=== PATIENT | female | born 1965 | race Hispanic/Latino ===

== ENCOUNTER 2025-03-27 12:06 | Emergency (ER) | payer BC ==
[~2025-03-27] VITALS: Ht 167.6 cm; Wt 65.8 kg
[~2025-03-27 12:06] MED LIST: ALBUHFA IH; ASPI-1005 PO; ATOR40TA69 PO; CHOL500050 PO; CLOP75TA32 PO; EMPA25TA PO; ENAL-89 PO; FENO134C21 PO; HYDR25TA PO; SEMA2PEN SQ
--- NOTE | 2025-03-27 12:13 | ERN ---
ED Note History of Present Illness Stated Complaint: NAUSEA AND VOMITING Chief Complaint: Nausea,Vomiting,Diarrhea Time Seen by MD: 12:07 Dictation: PATIENT IS A 59-YEAR-OLD FEMALE COMING IN WITH TODAY WITH COMPLAINTS OF EPIGASTRIC AND LEFT UPPER QUADRANT PAIN WITH NAUSEA VOMITING ONSET THREE DAYS PRIOR TO ARRIVAL. NO CHEST PAIN NO BACK PAIN NO SOB. NO ARM PAIN NO JAW PAIN. SEE YOUR PRIMARY CARE DOCTOR. Allergies: Coded Allergies: No Known Allergies (Unverified Allergy, Unknown, 04/24/24) Home Meds Active Scripts Atorvastatin Calcium (LIPITOR) 40 Mg Tablet, 80 MG PO HS, #30 TAB 0 Refills Prov:ASHLEY BLANDON MD 04/26/24 Aspirin (ASPIRIN 81MG CHEW TAB) 81 Mg Tab.chew, 81 MG PO DAILY, #30 TAB.CHEW 0 Refills Prov:ASHLEY BLANDON MD 04/26/24 Fenofibrate,Micronized (Fenofibrate) 134 Mg Capsule, 1 CAP PO DAILY, #30 CAP 0 Refills Prov:ASHLEY BLANDON MD 04/26/24 Clopidogrel Bisulfate (Clopidogrel) 75 Mg Tablet, 1 TAB PO DAILY, #30 TAB 0 Refills Prov:ASHLEY BLANDON MD 04/26/24 Reported Medications Semaglutide (Ozempic) 2 Mg/0.75 Ml (8 Mg/3 Ml) Pen.injctr, 2 MG SQ QWEEK Wednesdays04/25/24 Albuterol Sulfate (Ventolin Hfa/Proventil Hfa/Proair Hfa) 90 Mcg Puff, 2 PUFF IH Q6HPRN PRN for SHORTNESS OF BREATH/WHEEZING, INHALER 04/25/24 Empagliflozin (Jardiance) 25 Mg Tablet, 1 TAB PO DAILY 04/25/24 Enalapril Maleate (Enalapril Maleate) 10 Mg Tablet, 1 TAB PO DAILY 04/25/24 Cholecalciferol (Vitamin D3) (Vitamin D3) 1,250 Mcg (68777 Unit) Capsule, 1 CAP PO QWEEK Mondays04/25/24 Hydrochlorothiazide (Hydrochlorothiazide) 25 Mg Tablet, 1 TAB PO DAILY 04/25/24 Past Medical History Past Medical History: Diabetes-Type II, Hypertension Surgical History: None History: Not Applicable RN Note Reviewed/Agreed w/PFSH: Yes Review of System Dictation CONSTITUTIONAL: NEGATIVE EXCEPT FOR HPI HEAD/FACE: NEGATIVE EXCEPT FOR HPI EENT: NEGATIVE EXCEPT FOR HPI RESPIRATORY: NEGATIVE EXCEPT FOR HPI GASTROINTESTINAL/ABDOMINAL: NEGATIVE EXCEPT FOR HPI EPIGASTRIC AND LEFT UPPER QUADRANT PAIN WITH NAUSEA VOMITING GENITOURINARY: NEGATIVE EXCEPT FOR HPI MUSCULOSKELETAL: NEGATIVE EXCEPT FOR HPI INTEGUMENTARY: NEGATIVE EXCEPT FOR HPI NEUROLOGICAL/PSYCH: NEGATIVE EXCEPT FOR HPI HEMATOLOGIC/LYMPHATIC: NEGATIVE EXCEPT FOR HPI ALL SYSTEMS NEGATIVE, EXCEPT NOTED ABOVE. 13 POINT REVIEW OF SYSTEMS ASSESSED AND ALL NEGATIVE EXCEPT FOR ABOVE. Initial Vital Sign VS Vital Signs Date Time Temp Pulse Resp B/P (MAP) Pulse Ox O2 Delivery O2 Flow Rate FiO2 03/27/25 12:07 98.2 77 16 161/77 97 Room Air 03/27/25 12:26 0 21 Physical Exam Dictation VITAL SIGNS REVIEWED GENERAL APPEARANCE: ALERT, ORIENTED X 3, MODERATE ACUTE DISTRESS, WELL DEVELOPED, NOURISHED. HEAD AND FACE: NON-TRAUMATIC. EYES: PERRL, PINK CONJUNCTIVAS, EYELID NO TRAUMA, ANTERIOR CHAMBER WITH ARCUS SENILIS. EARS: PINNAS INTACT AND NO SIGNS OF TRAUMA OR ERYTHEMA EAR CANALS CLEAR AND NO DISCHARGE TM NO ERYTHEMA NOSE: NO DISCHARGE, NO BLEEDING. OROPHARYNX: MOUTH NORMAL, TONGUE PINK, PHARYNX CLEAR,NO ERYTHEMA, TONSILS NO EXUDATES, NO ABSCESSES NOTED, MUCOUS MEMBRANE MOIST NECK: SUPPLE, NON-TENDER, NO THYROMEGALY, NO MASSES, NO JVD, NO BRUITS BREAST:DEFERRED CHEST:NO TENDERNESS, NO CREPITUS, NO PARADOXICAL MOVEMENT, NO RETRACTIONS LUNGS:CLEAR, WELL-VENTILATED, SYMMETRIC, NO RALES, NO WHEEZING, NO RHONCHI, NO STRIDOR, GOOD BREATH SOUNDS BILATERALLY HEART: REGULAR RATE, REGULAR RHYTHM, NO MURMUR, NO GALLOPS VASCULAR: NO PERIPHERAL EDEMA, ABDOMEN: SOFT, POSITIVE BOWEL SOUNDS, NONDISTENDED, NO GUARDING, MODERATE EPIGASTRIC TENDERNESS WITH PALPATION NO REBOUND, NO MASSES NO HEPATOMEGALY, NO SPLENOMEGALY, NO HERNANDEZ'S SIGN, NO HERNIAS. RECTAL: DEFERRED GENITAL: DEFERRED NEUROLOGICAL: NORMAL SPEECH, MOTOR FUNCTION INTACT, SENSORY FUNCTION INTACT MUSCULOSKELETAL: NECK NONTENDER, FULL RANGE OF MOTION, BACK NONTENDER, FULL RANGE OF MOTION, EXTREMITIES: NONTENDER, FULL RANGE OF MOTION SKIN: COLOR PINK, DRY, NO TURGOR, NO RASH, NO LACERATIONS, NO ABRASIONS, NO CONTUSIONS. LYMPHATIC: DEFERRED Results (Laboratory/Radiology) Laboratory/Radiology Laboratory Tests Test 03/27/25 12:31 03/27/25 12:42 White Blood Count 7.9 K/uL (4.8-10.8) Red Blood Count 4.80 MIL/uL (4.00-5.50) Hemoglobin 15.3 g/dL (12.0-16.0) Hematocrit 44.0 % (36-48) Mean Corpuscular Volume 91.7 fL (79-99) Mean Corpuscular Hemoglobin 31.9 pg (27.0-33.0) Mean Corpuscular Hemoglobin Concent 34.8 g/dL (32.0-36.0) Red Cell Distribution Width 12.7 % (11.0-15.5) Platelet Count 242 K/uL (130-400) Mean Platelet Volume 10.9 fL (7.5-10.5) H Immature Granulocyte % (Auto) 0.6 % (0-1) Neutrophils (%) (Auto) 58.4 % (40.0-77.0) Lymphocytes (%) (Auto) 30.4 % (21.0-51.0) Monocytes (%) (Auto) 8.1 % (3.0-13.0) Eosinophils (%) (Auto) 2.0 % (0.0-8.0) Basophils (%) (Auto) 0.5 % (0.0-5.0) Neutrophils # (Auto) 4.6 K/uL (1.8-7.7) Lymphocytes # (Auto) 2.4 K/uL (1.0-4.8) Monocytes # (Auto) 0.6 K/uL (0.1-1.0) Eosinophils # (Auto) 0.16 K/uL (0.00-0.70) Basophils # (Auto) 0.04 K/uL (0.00-0.20) Absolute Immature Granulocyte (auto 0.05 K/uL (0-1) Nucleated Red Blood Cells 0.0 % (0.0-0.19) Sodium Level 140 mmol/L (136-145) Potassium Level 4.6 mmol/L (3.5-5.1) Chloride Level 102 mmol/L (101-111) Carbon Dioxide Level 28 mmol/L (21-32) Blood Urea Nitrogen 18 mg/dL (7-18) Creatinine 0.5 mg/dL (0.5-1.0) Glomerular Filtration Rate Calc 107 mL/min (>90) Random Glucose 96 mg/dL (70-105) Total Calcium 8.7 mg/dL (8.5-10.1) Troponin I High Sensitivity 5 ng/L (4-50) Lipase 79 U/L (16-77) H Urine Color YELLOW (YELLOW) Urine Appearance CLEAR (CLEAR) Urine pH 5.5 (5.0-8.0) Urine Specific [place] 1.048 (1.001-1.031) Urine Protein NEGATIVE mg/dL (NEGATIVE) Urine Glucose (UA) >=1000 mg/dL (NEGATIVE) H Urine Ketones 10 mg/dL (NEGATIVE) H Urine Occult Blood NEGATIVE (NEGATIVE) Urine Nitrate NEGATIVE (NEGATIVE) Urine Bilirubin NEGATIVE mg/dL (NEGATIVE) Urine Urobilinogen 0.2 mg/dL (0.2-1.0) Urine Leukocyte Esterase 25 Albert/uL (NEGATIVE) H Urine RBC 2-5 /HPF (0-1) H Urine WBC 6-10 /HPF (0-1) H Urine Squamous Epithelial Cells FEW /HPF (0-2) Urine Bacteria None /HPF (None Seen) Labs Reviewed?: Yes EKG Comment: 1217/EKG sinus rhythm/heart rate 69/axis normal/right bundle branch block ED Course ED Course Orders Procedure Category Date Status Time Cbc With Differential LAB 03/27/25 Complete 12:09 Troponin I High LAB 03/27/25 Complete Sensitivity 12:09 Urinalysis Profile LAB 03/27/25 Complete 12:09 0.9%Nacl 1000ml (Ns PHA 03/27/25 Complete 1000ml) 12:30 Morphine 2mg Syg PHA 03/27/25 Complete (Morphine 2mg Syg) 12:30 Ondansetron 4mg Inj PHA 03/27/25 Complete (Zofran 4mg Inj) 12:30 Famotidine 20mg Vial PHA 03/27/25 Complete (Pepcid 20mg Vial) 12:30 Lipase LAB 03/27/25 Complete 12:09 Basic Metabolic Panel LAB 03/27/25 Complete 12:09 12 Lead Ekg Tracing- EKG 03/27/25 Complete Technical 12:20 Lidocaine Hcl 2% PHA 03/27/25 Complete Viscous (Lidocaine Hcl 13:00 Mag/Alum/Simeth 30ml PHA 03/27/25 Complete (Maalox Plus 30ml) 13:00 Dicyclomine Hcl PHA 03/27/25 Complete (Bentyl 10mg/5ml 13:00 Culture Urine FRANCISCO 03/27/25 In Process 13:49 Current Medications Medications (Trade) Dose Ordered Sig/Caridad Route PRN Reason Start Time Stop Time Status Last Admin Dose Admin Al Hydroxide/Mg Hydroxide (MAALox PLUS 30ML) 30 ml ONCE ONCE PO 03/27/25 13:00 03/27/25 13:01 DC 03/27/25 13:33 Dicyclomine HCl (Bentyl 10mg/5ml Syrup) 10 mg ONCE ONCE PO 03/27/25 13:00 03/27/25 13:01 DC 03/27/25 13:33 Famotidine (Pepcid 20mg Vial) 20 mg ONCE ONCE IV 03/27/25 12:30 03/27/25 12:31 DC 03/27/25 12:33 Lidocaine HCl (Lidocaine HCl 2% Viscous) 10 ml ONCE ONCE PO 03/27/25 13:00 03/27/25 13:01 DC 03/27/25 13:33 Morphine Sulfate (morPHINE 2MG SYG) 2 mg ONCE ONCE IVP 03/27/25 12:30 03/27/25 12:31 DC 03/27/25 12:33 Ondansetron HCl (zoFRAN 4MG INJ) 4 mg ONCE ONCE IVP 03/27/25 12:30 03/27/25 12:31 DC 03/27/25 12:32 Sodium Chloride 1,000 ml @ 0 mls/hr ONCE ONCE IV 03/27/25 12:30 03/27/25 12:31 DC 03/27/25 12:33 Vital Signs Date Time Temp Pulse Resp B/P (MAP) Pulse Ox O2 Delivery O2 Flow Rate FiO2 03/27/25 14:02 98.2 70 16 152/74 95 Room Air* 0 21 03/27/25 12:26 98.2 73 16 148/75 95 Room Air* 0 21 03/27/25 12:07 98.2 77 16 161/77 97 Room Air 1455/PATIENT FEELS MARKEDLY IMPROVED AFTER GI COCKTAIL FLUIDS. SHE WILL BE DISCHARGED HOME WITH ACUTE URINARY TRACT INFECTION AND GASTRITIS. HEART Score Response (Comments) Value EKG: Repolarization changes 1 Age: 45-65yrs (+1) 1 Risk Factors: 1-2 risk factors (+1) 1 Initial Troponin: Normal limit (0) 0 Total 3 Medical Decision Making MDM MDM: DIFFERENTIAL DIAGNOSIS: ACUTE GASTRITIS/PANCREATITIS/ACS/AMI/ELECTROLYTE IMBALANCE/DEHYDRATION/UTI RATIONALE: TESTS CONSIDERED AND ORDERED SECONDARY TO SHARED DECISION MAKING INCLUDE: LABS/RADIOLOGY/EKG PREVIOUS OUTSIDE RECORDS REVIEWED: OLD ER VISITS. RISK OF COMPLICATION AND/OR MORBIDITY OR MORTALITY OF PATIENT MANAGEMENT: NONE MEDICATIONS-PER MEDICATION RECONCILIATION NEED FOR HOSPITALIZATION: PATIENT DOES NOT MEET CRITERIA FOR HOSPITALIZATION. NONE NEED FOR EMERGENCY MAJOR/MINOR SURGERY: NO THERE ARE NO SOCIAL CONCERNS WITH THIS PATIENT. ZOFRAN/MACROBID PRESCRIPTIONS WILL INCLUDE SYMPTOMATIC CARE PATIENT'S PRIOR EXTERNAL MEDICAL RECORDS FROM OTHER ER VISITS WERE REVIEWED BY ME INDICATED. PRIOR TESTING AND RESULTS FROM PREVIOUS VISITS WERE REVIEWED. PRIOR TESTS WERE TAKEN INTO ACCOUNT WITH MEDICAL DECISION MAKING AND RESOURCE UTILIZATION, INDEPENDENT HISTORIAN/HISTORIANS WERE USED TO OBTAIN COMPLETE MEDICAL HISTORY. I INDEPENDENTLY INTERPRETED THE TEST THAT WERE PERFORMED, RESULTS WERE REVIEWED BY ME AND CONSIDERED FINDINGS ON RADIOLOGY IF ORDERED. MEDICAL MANAGEMENT AND EXAMINATION INTERPRETATION DISCUSSIONS WERE HAD BY ME WITH OTHER QUALIFIED HEALTHCARE PROFESSIONALS INDICATED FOR THE PATIENT'S CARE. DX & DISP Disposition: Discharge Departure Impression: Primary Impression: Acute gastritis Additional Impressions: Mild dehydration, Nausea & vomiting, Acute UTI Condition: Stable Scripts Omeprazole (Omeprazole) 40 Mg Capsule.dr 1 CAP PO DAILY for 30 Days, #30 CAP 0 Refills Prov: KRISTEL OLVERA WHEEL GRINDER 10/25/25 Nitrofurantoin/Nitrofuran Mac (Macrobid) 100 Mg Cap 1 CAP PO BID for 7 Days, #14 CAP 0 Refills Prov: KRISTEL OLVERA WHEEL GRINDER 10/25 Ondansetron (Ondansetron Odt) 4 Mg Tab.rapdis 4 MG PO Q6HPRN PRN for nausea, #16 TAB 0 Refills Prov: KRISTEL OLVERA WHEEL GRINDER 10/25 Additional Instructions: FOLLOW-UP WITH PRIMARY CARE PROVIDER IN 1 TO 2 DAYS. TAKE MEDICATIONS DIRECTED HERE IN THE EMERGENCY ROOM. OKAY TO CONTINUE HOME MEDICATIONS UNLESS OTHERWISE DISCUSSED DURING YOUR VISIT IN THE EMERGENCY ROOM TODAY. RETURN TO YOUR NEAREST EMERGENCY ROOM IF SYMPTOMS WORSEN OR IF THERE IS NO IMPROVEMENT. CALL 911 IF YOU NEED IMMEDIATE ASSISTANCE. TAKE TYLENOL OR MOTRIN O [id number] NEEDED AND IF NO CONTRAINDICATIONS ARE PRESENT. INCREASE ORAL HYDRATION. A WOUND CULTURE OR URINE CULTURE WAS ORDERED HERE IN THE EMERGENCY ROOM DEPARTMENT PLEASE FOLLOW-UP WITH PRIMARY CARE PROVIDER AND ADVISE THEM TO GET REPEAT PORTS FROM OUR FACILITY. IF YOU HAD ANY SUSAN WRAP/SPLINTS THAT WERE APPLIED HERE, PLEASE DO NOT REMOVE THEM UNTIL YOU SEE YOUR PRIMARY CARE OR SPECIALTY. CLEAR LIQUID DIET FOR THE NEXT12 HOURS AND THEN ADVANCE DIET SLOWLY TO REGULAR. AVOID SPICY FOODS, NO ICE TEA, NO COFFEE, NO ALCOHOL, NO CITRUS FRUIT JUICE UNTIL CLEARED BY YOUR DOCTOR SATURDAY. TAKE ANTIBIOTICS DIRECTED UNTIL GONE. INCREASE YOUR WATER INTAKE. Referrals: RENE FREEMAN MD (PCP) Time of Disposition: 14:52 I have reviewed the case, and I agree with, Diagnosis and Plan KRISTEL OLVEAR WHEEL GRINDER Mar 27, 2025 12:13
[2025-03-27] MEDS: FAMOTIDINE 20MG VIAL IV ONE (12:33)
[2025-03-27] MEDS: 0.9%NACL 1000ML 1,000 ML IV ONE (12:33)
[2025-03-27 12:41] LABS: IMMATURE GRANULOCYTE ABSOLUTE 0.05 K/uL (0-1); NUCLEATED RED BLOOD CELLS 0.0 % (0.0-0.19); PLATELET COUNT (AUTO) 242 K/uL (130-400); RED BLOOD CELL COUNT(AUTO) 4.80 MIL/uL (4.00-5.50); RED CELL DISTRIBUTION WIDTH 12.7 % (11.0-15.5); WHITE BLOOD COUNT (AUTO) 7.9 K/uL (4.8-10.8)
[2025-03-27 12:50] LABS: CREATININE 0.5 mg/dL (0.5-1.0); GLOMERULAR FILTR. RATE CALC 107.0 mL/min (>90); GLUCOSE,RANDOM 96.0 mg/dL (70-105); SODIUM SERUM 140.0 mmol/L (136-145); UREA NITROGEN, BLOOD 18.0 mg/dL (7-18)
[2025-03-27] MEDS: MAG/ALUM/SIMETH 30 ML UDCUP PO ONE (13:33)
[2025-03-27] MEDS: DICYCLOMINE HCL 10 MG/5 ML ML PO ONE (13:33)
[2025-03-27] MEDS: LIDOCAINE HCL 2% VISCOUS 15 ML UDCUP PO ONE (13:33)
[2025-03-27 13:48] LABS: ADD UA MICROSCOPIC YES; APPEARANCE,URINE CLEAR (CLEAR); GLUCOSE, URINE (UA) >=1000 mg/dL (NEGATIVE); LEUKOCYTE ESTERASE ,URINE 25 Leu/uL (NEGATIVE); NITRATE,URINE NEGATIVE (NEGATIVE); OCCULT BLOOD,URINE NEGATIVE (NEGATIVE); SQUAMOUS EPITHELIAL CELL,UR FEW /HPF (0-2)
[2025-03-27 14:02] VITALS: BP 152/74; PULSE 70; RESP 16; TEMP 98.3; O2SAT 95
--- NOTE | 2025-03-27 14:05 | EKG ---
[facility] Test Date: 2025-03-27 Test Time: 12:17:53 Pat Name: GERMANIA SHELL Department: 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
[2025-03-27] MEDS ORDERED: MACR100 PO (14:53)
[2025-03-27] MEDS ORDERED: OMEP40CA21 PO (14:53)
[2025-03-27] MEDS ORDERED: ONDA-243 PO (14:53)
== END 2025-03-27 15:05 | disposition home or self-care (01) ==
LOC: EDH 12:06
DX: K29.00 Acute gastritis without bleeding (principal); E86.0 Dehydration; N39.0 Urinary tract infection, site not specified; E11.9 Type 2 diabetes mellitus without complications; I10 Essential (primary) hypertension; R11.2 Nausea with vomiting, unspecified; Z79.85 Long-term (current) use of injectable non-insulin antidiabetic drugs; Z79.84 Long term (current) use of oral hypoglycemic drugs; Z79.82 Long term (current) use of aspirin; Z79.02 Long term (current) use of antithrombotics/antiplatelets; Z79.899 Other long term (current) drug therapy
CPT/HCPCS: 99284; 96374; 96375; 84484; 80048; 83690; 85025; 87086; 81001; 36415; 93005; J1308; J2270; J7030; J2405